=== PATIENT | male | born 1970 | race Caucasian/White ===

== ENCOUNTER 2016-04-17 10:48 | Emergency (ER) | payer MEDICAID ==
[2016-04-17 11:37] VITALS: TEMP 97.3
--- NOTE | 2016-04-17 12:23 | EDPHY ---
H & P Smoking Status: Unknown if ever smoked Time Seen by Provider: 04/17/16 10:50 HPI/ROS: CHIEF COMPLAINT: Dizzy HISTORY OF PRESENT ILLNESS: 46-year-old male presents to the emergency department by ambulance feeling extremely dizzy. Patient has a history of methamphetamine abuse. His last use was at 7 o'clock this morning. States that he felt extremely dizzy. He is concerned that he is having another heart attack. He had a myocardial infarction 2 years ago and has a stent. He denies shortness of breath. He denies pain in his chest. He denies any reported trauma. No head injury. No visual changes. Denies any other substance abuse. He has used cocaine in the past. REVIEW OF SYSTEMS: Constitutional: No fever, no chills. Eyes: No double or blurry vision. ENT: No sore throat. Respiratory: No cough, no shortness of breath. Cardiac: No chest pain. Gastrointestinal: No abdominal pain, vomiting or diarrhea. Genitourinary: No dysuria. Musculoskeletal: No neck or back pain. Skin: No rashes. Neurological: No headache. (Payton Esquivel) Past Medical/Surgical History: Substance abuse, myocardial infarction 2 years ago with stent placement (Payton Esquivel) Social History: Homeless from [place] (Payton Esquivel M) Physical Exam: General Appearance: Alert, no distress. Anxious, agitated Eyes: Pupils equal and round. Extraocular motions are all intact. No nystagmus. ENT: Mouth: Mucous membranes moist. Respiratory: No wheezing, rhonchi, or rales, lungs are clear to auscultation. Cardiovascular: Regular rate and rhythm. Gastrointestinal: Abdomen is soft and nontender, no masses, no rebound or guarding, bowel sounds normal. Neurological: Alert and oriented x 3, cranial nerves II through XII grossly intact Skin: Warm and dry, no rashes. Musculoskeletal: Nontender to palpate along the cervical, thoracic or lumbar spine. Neck is supple. Extremities: Full range of motion and no peripheral edema. Psychiatric: Agitated (Payton Esquivel M) Constitutional: Initial Vital Signs Temperature (C) 36.3 C 04/17/16 11:32 Heart Rate 77 04/17/16 11:32 Respiratory Rate 20 04/17/16 11:32 Blood Pressure 162/101 H 04/17/16 11:32 O2 Sat (%) 94 04/17/16 11:32 O2 Delivery Mode Room Air Medical Decision Making - Diagnostics EKG Interpretation: EKG was reviewed by Dr. Annette Foley and revealed normal sinus rhythm. See interpretation in trace master. (Payton Esquivel) ED Course/Re-evaluation: 46-year-old male presents to the emergency department feeling dizzy after using methamphetamines. His EKG is unremarkable. Troponin is negative. The patient was observed for several hours in the emergency department. He was asking for food. He was given a sandwich and some apple juice and was feeling much better. He was no longer feeling dizzy. He never developed any chest pain or difficulty breathing. He ambulated on his own and will be discharged to the [facility]. (Payton Esquivel) Differential Diagnosis: Including but not limited to myocardial infarction, substance abuse, electrolyte abnormality, positional vertigo, dehydration (Payton Esquivel) Other Provider: The patient was evaluated and managed by the Physician Platform Loader/ Nurse Practitioner. I discussed the patient's presentation and course with the midlevel provider with them and agree with the evaluation. My co-signature indicates that I have reviewed this chart and I agree with the findings and plan of care as documented. I am the secondary supervising physician. (Annette Foley) - Data Points Laboratory Results: Laboratory Results 04/17/16 12:55 04/17/16 12:55 04/17/16 04/17/16 12:55 12:55 WBC 6.31 10^3/uL 10^3/uL (3.80-9.50) RBC 4.56 10^6/uL 10^6/uL (4.40-6.38) Hgb 12.8 g/dL L g/dL (13.7-17.5) Hct 38.3 % L % (40.0-51.0) MCV 84.0 fL fL (81.5-99.8) MCH 28.1 pg pg (27.9-34.1) MCHC 33.4 g/dL g/dL (32.4-36.7) RDW 13.8 % % (11.5-15.2) Plt Count 293 10^3/uL 10^3/uL (150-400) MPV 9.2 fL fL (8.7-11.7) Neut % (Auto) 64.6 % % (39.3-74.2) Lymph % (Auto) 24.1 % % (15.0-45.0) [place] % (Auto) 8.9 % % (4.5-13.0) Eos % (Auto) 1.7 % % (0.6-7.6) Baso % (Auto) 0.5 % % (0.3-1.7) Nucleat RBC Rel Count 0.0 % % (0.0-0.2) Absolute Neuts (auto) 4.08 10^3/uL 10^3/uL (1.70-6.50) Absolute Lymphs (auto) 1.52 10^3/uL 10^3/uL (1.00-3.00) Absolute Monos (auto) 0.56 10^3/uL 10^3/uL (0.30-0.80) Absolute Eos (auto) 0.11 10^3/uL 10^3/uL (0.03-0.40) Absolute Basos (auto) 0.03 10^3/uL 10^3/uL (0.02-0.10) Absolute Nucleated RBC 0.00 10^3/uL 10^3/uL (0-0.01) Immature Gran % 0.2 % % (0.0-1.1) Immature Gran # 0.01 10^3/uL 10^3/uL (0.00-0.10) Sodium 140 mEq/L mEq/L (134-144) Potassium 3.7 mEq/L mEq/L (3.5-5.2) Chloride 106 mEq/L mEq/L (97-110) Carbon Dioxide 23 mEq/l mEq/l (22-31) Anion Gap 11 mEq/L mEq/L (8-16) BUN 10 mg/dL mg/dL (7-23) Creatinine 0.8 mg/dL mg/dL (0.7-1.3) Estimated GFR > 60 Glucose 91 mg/dL mg/dL (70-100) Calcium 9.5 mg/dL mg/dL (8.5-10.4) Troponin I < 0.012 ng/mL ng/mL (0-0.034) Departure - Departure Disposition: Home, Routine, Self-Care Clinical Impression: Methamphetamine abuse Condition: Good Instructions: Methamphetamine Abuse (ED) Additional Instructions: [facility] because of your methamphetamine abuse. Referrals: [facility] [Outside] - As per Instructions
--- NOTE | 2016-04-17 12:53 | CPEKG ---
Heart Rate: 73 RR Interval: 822 P-R Interval: 160 QRSD Interval: 108 QT Interval: 444 QTC Interval: 490 P Jasper: 59 QRS Jasper: -20 T Wave Jasper: 18 EKG Severity - BORDERLINE ECG - EKG Impression: SINUS RHYTHM EKG Impression: BORDERLINE PROLONGED QT INTERVAL Electronically Signed By: Annette Foley 18-Apr-2016 16:27:28
[2016-04-17 13:09] LABS: % IMMATURE GRANULYOCYTES 0.2 % (0.0-1.1); ABSOLUTE IMMATURE GRANULOCYTES 0.01 10^3/uL (0.00-0.10); ADD DIFF? NO; ADD MORPH? NO; ADD SCAN? NO; ATYPICAL LYMPHOCYTE FLAG 0 (0-99); FRAGMENT RBC FLAG 0 (0-99); HEMATOCRIT 38.3 % (40.0-51.0); HEMOGLOBIN 12.8 g/dL (13.7-17.5); LEFT SHIFT FLG 0 (0-99); LIPEMIA HEMOLYSIS FLAG 80 (0-99); MEAN CELL HEMOGLOBIN 28.1 pg (27.9-34.1); MEAN CELL HEMOGLOBIN CONCENTR. 33.4 g/dL (32.4-36.7); MEAN PLATELET VOLUME 9.2 fL (8.7-11.7); PLATELET CLUMPS FLAG 30 (0-99); PLATELET COUNT 293 10^3/uL (150-400); RED BLOOD CELL COUNT 4.56 10^6/uL (4.40-6.38); RED CELL DISTRIBUTION WIDTH 13.8 % (11.5-15.2)
[2016-04-17 13:27] LABS: ANION GAP 11 mEq/L (8-16); CALCIUM 9.5 mg/dL (8.5-10.4); CARBON DIOXIDE 23 mEq/l (22-31); CHLORIDE 106 mEq/L (97-110); CREATININE 0.8 mg/dL (0.7-1.3); GLOMERULAR FILTRATION RATE > 60; GLUCOSE 91 mg/dL (70-100); POTASSIUM 3.7 mEq/L (3.5-5.2); SODIUM 140 mEq/L (134-144)
[2016-04-17 13:39] LABS: TROPONIN I < 0.012 ng/mL (0-0.034)
[2016-04-17 16:37] VITALS: BP 149/95; PULSE 92; RESP 16; O2SAT 93
== END 2016-04-17 17:05 | disposition home or self-care (01) ==
DX: F15.10 Other stimulant abuse, uncomplicated (principal); I25.2 Old myocardial infarction

== ENCOUNTER 2016-07-27 22:29 | Emergency (ER) | payer MEDICAID ==
[2016-07-27 22:40] VITALS: TEMP 98.4; O2SAT 96
--- NOTE | 2016-07-28 01:27 | EDPHY ---
H & P Stated Complaint: detox, HTN Time Seen by Provider: 07/28/16 01:10 HPI/ROS: HPI The patient presents with concern for methamphetamine withdrawal, last used about 15 hours prior to presentation. He feels as if his blood pressure may be high and does have a history of hypertension. He recently relocated here from [place] and does not have local treating physicians. He denies any palpitations , seizure, trauma. He does not have any chest pain, shortness of breath, abdominal pain, confusion. REVIEW OF SYSTEMS Constitutional: No fever, no chills. Eyes: No discharge. ENT: No sore throat. Cardiovascular: No chest pain, no palpitations. Respiratory: No cough, no shortness of breath. Gastrointestinal: No abdominal pain, no vomiting. Genitourinary: No hematuria. Musculoskeletal: No back pain. Skin: No rashes. Neurological: No headache. PMHx: Hypertension Soc Hx: Homeless, methamphetamine abuse PHYSICAL General Appearance: Alert, no distress Eyes: Pupils equal and round no pallor or injection ENT, Mouth: Mucous membranes moist Respiratory: There are no retractions, lungs are clear to auscultation Cardiovascular: Regular rate and rhythm Gastrointestinal: Abdomen is soft and non-tender, no masses, bowel sounds normal Neurological: A&O, moves all extremities Skin: Warm and dry, no rashes Musculoskeletal: Neck is supple non tender Extremities: symmetrical, full range of motion Psychiatric: Patient is oriented X 3, there is no agitation Source: Patient Exam Limitations: No limitations - Personal History Current Tetanus/Diphtheria Vaccine: Yes Current Tetanus Diphtheria and Acellular Pertussis (TDAP): Yes - Medical/Surgical History Hx Asthma: No Hx Chronic Respiratory Disease: No Hx Diabetes: Yes Hx Cardiac Disease: No Hx Renal Disease: No Hx Cirrhosis: No Hx Alcoholism: No Hx HIV/AIDS: No Other PMH: meth abuse, HTN, ETOH abuse - Social History Smoking Status: Never smoked Constitutional: Initial Vital Signs Temperature (C) 36.9 C 07/27/16 22:37 Heart Rate 108 H 07/27/16 22:37 Respiratory Rate 20 07/27/16 22:37 Blood Pressure 172/110 H 07/27/16 22:37 O2 Sat (%) 96 07/27/16 22:37 O2 Delivery Mode Room Air Allergies/Adverse Reactions: No Known Allergies Allergy (Unverified 07/27/16 22:36) Home Medications: Medication Instructions Recorded NK [No Known Home Meds] 07/27/16 Medical Decision Making Differential Diagnosis: This is a 46-year-old male, with homelessness, methamphetamine abuse, new to the area, who presents looking for a detox program for methamphetamine. He last used about 15 hours ago. He would like to be sober. He initially is complaining of elevated blood pressure, however he is normotensive now here. He does not have any signs of hypertensive emergency. We will provide him with outpatient resources such as the [facility]. Differential diagnosis includes methamphetamine intoxication, methamphetamine withdrawal, alcohol withdrawal. - Data Points Medications Given: Discontinued Medications Chlordiazepoxide HCl (Librium) 10 mg PO EDNOW ONE Stop: 07/28/16 01:37 Last Admin: 07/28/16 01:45 Dose: 10 mg Departure - Departure Disposition: Home, Routine, Self-Care Clinical Impression: Methamphetamine abuse Condition: Good Instructions: Methamphetamine Abuse (ED) Referrals: [facility] [Outside] - As per Instructions
[2016-07-28] MEDS ORDERED: chlordiazePOXIDE 25 MG CAP PO ONE (01:36)
[2016-07-28 01:47] VITALS: BP 130/88; PULSE 78; RESP 16
== END 2016-07-28 01:45 | disposition home or self-care (01) ==
DX: F15.10 Other stimulant abuse, uncomplicated (principal); I10 Essential (primary) hypertension; E11.9 Type 2 diabetes mellitus without complications

== ENCOUNTER 2016-08-07 16:25 | Emergency (ER) | payer MEDICAID, OTHER ==
[2016-08-07 16:43] VITALS: BP 174/104; PULSE 104; RESP 16; TEMP 97.7; O2SAT 95
[2016-08-07] MEDS ORDERED: LORazepam 2 MG/ML INJ IVP ONE (16:55)
[2016-08-07] MEDS ORDERED: NS 1,000 ML IV ONE (16:56)
[2016-08-07] MEDS ORDERED: LORazepam 1 MG TAB ONE (17:24)
[2016-08-07] MEDS ORDERED: LORazepam 1 MG TAB PO ONE (17:26)
[2016-08-07 19:02] LABS: % IMMATURE GRANULYOCYTES 0.3 % (0.0-1.1); ABSOLUTE IMMATURE GRANULOCYTES 0.02 10^3/uL (0.00-0.10); ADD DIFF? NO; ADD MORPH? NO; ADD SCAN? NO; ATYPICAL LYMPHOCYTE FLAG 10 (0-99); FRAGMENT RBC FLAG 0 (0-99); HEMATOCRIT 42.1 % (40.0-51.0); HEMOGLOBIN 13.7 g/dL (13.7-17.5); LEFT SHIFT FLG 0 (0-99); LIPEMIA HEMOLYSIS FLAG 80 (0-99); MEAN CELL HEMOGLOBIN 27.9 pg (27.9-34.1); MEAN CELL HEMOGLOBIN CONCENTR. 32.5 g/dL (32.4-36.7); MEAN CELL VOLUME 85.7 fL (81.5-99.8); MEAN PLATELET VOLUME 8.9 fL (8.7-11.7); PLATELET CLUMPS FLAG 0 (0-99); PLATELET COUNT 298 10^3/uL (150-400); RED BLOOD CELL COUNT 4.91 10^6/uL (4.40-6.38); RED CELL DISTRIBUTION WIDTH 14.8 % (11.5-15.2)
[2016-08-07 19:23] LABS: ANION GAP 13 mEq/L (8-16); CALCIUM 9.8 mg/dL (8.5-10.4); CARBON DIOXIDE 22 mEq/l (22-31); CHLORIDE 104 mEq/L (97-110); CREATININE 1.1 mg/dL (0.7-1.3); ETHANOL SERUM < 10 mg/dL (0-10); GLOMERULAR FILTRATION RATE > 60; GLUCOSE 120 mg/dL (70-100); POTASSIUM 4.2 mEq/L (3.5-5.2); SODIUM 139 mEq/L (134-144)
--- NOTE | 2016-08-07 20:38 | EDPHY ---
H & P Time Seen by Provider: 08/07/16 16:28 HPI/ROS: CHIEF COMPLAINT: Anxiety, paranoia HISTORY OF PRESENT ILLNESS: This is a 46-year-old male presents to the emergency department via EMS. Patient himself is unable to clearly state why he is here, other than that he is anxious and he was told by the [facility] to come to the emergency department. Patient denies a history of alcohol use. He seems quite paranoid and is difficult to obtain a clear history. The only thing he repeatedly tells me is that he is anxious and he is wondering why nobody is listening to him. Patient denies any pain. He denies a headache, shortness of breath, abdominal pain, nausea, or vomiting. He denies any diarrhea. He denies a history of mental health disease. He denies a history of alcohol abuse. Patient does report that he has used methamphetamines. REVIEW OF SYSTEMS: Aside from elements discussed in the HPI, a comprehensive 10-point review of systems was reviewed and is negative. PAST MEDICAL HISTORY: Patient denies. No reported of mental health disorders. SOCIAL HISTORY: Smoker. Smoking Status: Never smoked Physical Exam: VITAL SIGNS Reviewed by me. GENERAL: Well-developed, well-nourished, no obvious respiratory distress. Seems very anxious and paranoid. HEENT: Atraumatic. Eyes: No icterus, no injection. Mouth: dry mucous membranes. No erythema or lesions. Neck: supple with no adenopathy. No meningismus, neg kernig, neg brudzinski. LUNGS: Clear to auscultation bilaterally, no wheezes, rhonchi or rales. CARDIAC: Regular rate and rhythm, no rubs, murmurs or gallops. ABDOMEN: Soft, nontender, nondistended, bowel sounds normal. BACK: No CVA tenderness. EXTREMITIES: No trauma. No edema. Range of motion is normal throughout. NEURO: Alert and oriented, grossly nonfocal. SKIN: Warm and dry, no rash. PSYCHIATRIC: Paranoid, agitated. Constitutional: Initial Vital Signs Temperature (C) 36.5 C 08/07/16 16:39 Heart Rate 104 H 08/07/16 16:39 Respiratory Rate 16 08/07/16 16:39 Blood Pressure 174/104 H 08/07/16 16:39 O2 Sat (%) 95 08/07/16 16:39 O2 Delivery Mode Room Air Allergies/Adverse Reactions: No Known Allergies Allergy (Unverified 07/27/16 22:36) Home Medications: Medication Instructions Recorded NK [No Known Home Meds] 07/27/16 Medical Decision Making ED Course/Re-evaluation: 46 year old presenting via EMS for anxiety. After arrival to ED, patient expresses significant paranoid ideation. Very anxious. Reports methamphetamine use. Treated with ativan 1 mg po. Patient refused IV placement or meds. Labs largely unremarkable; urine tox without evidence of methamphetamines. Eval by Beth from [facility]. Patient known to EPS and to [facility]. History of methamphetamine use. EPS will not evaluate till 12 hours post admission to ensure that ampetamines have cleared. Patient not expressing SI, HI, or grave disability; does wish to be taken to the [facility] for meth detox. [facility] aware of patient as well and agree to take him for detox. Differential Diagnosis: Diff dx considered included electrolyte abnormalities, hyperthyroid, drug or alcohol use, drug or alcohol withdrawl, mental health diagnosis, bipolar, schizophrenia. - Data Points Laboratory Results: Laboratory Results 08/07/16 18:50 08/07/16 18:50 Medications Given: Discontinued Medications Sodium Chloride (Ns) 1,000 mls @ 0 mls/hr IV ONCE ONE; Wide Open PRN Reason: Protocol Stop: 08/07/16 16:57 Last Admin: 08/07/16 19:02 Dose: Not Given Lorazepam (Ativan Injection) 1 mg IVP EDNOW ONE Stop: 08/07/16 16:56 Last Admin: 08/07/16 19:01 Dose: Not Given Lorazepam (Ativan) 1 mg PO EDNOW ONE Stop: 08/07/16 17:27 Last Admin: 08/07/16 17:32 Dose: 1 mg Departure - Departure Disposition: Home, Routine, Self-Care Clinical Impression: Methamphetamine use, Paranoid behavior Condition: Good Instructions: Methamphetamine Abuse (ED) Additional Instructions: You have been discharged to the [facility]. We strongly encourage you to stop using methamphetamines. Referrals: Patient,NotPresent [Primary Care Provider] - As per Instructions
== END 2016-08-07 21:13 | disposition home or self-care (01) ==
LOC: EDUNIT#
DX: F15.90 Other stimulant use, unspecified, uncomplicated (principal); F60.0 Paranoid personality disorder; F17.200 Nicotine dependence, unspecified, uncomplicated
CPT/HCPCS: 80305; G0480

== ENCOUNTER 2017-06-18 06:15 | Emergency (ER) | payer MEDICAID ==
[2017-06-18 06:29] VITALS: BP 188/103
[2017-06-18] MEDS ORDERED: LISINOPRIL 20 MG TAB PO ONE (06:33)
[2017-06-18] MEDS ORDERED: CHLORDIAZEPOXIDE 25MG PREPK#6 BTL TAKEHOME ONE (06:33)
--- NOTE | 2017-06-18 06:34 | EDPHY ---
H & P Stated Complaint: requesting detox from meth-awake for 7 days Time Seen by Provider: 06/18/17 06:31 HPI/ROS: HPI The patient presents brought in by ambulance requesting detox from methamphetamine. He last used earlier in the day today. As he has a longstanding history of methamphetamine abuse. He is feeling jittery and generally unwell. He denies any chest pain or shortness of breath.. He does admit to drinking 1 beer in the last day. REVIEW OF SYSTEMS Constitutional: No fever, no chills. Eyes: No discharge. ENT: No sore throat. Cardiovascular: No chest pain, no palpitations. Respiratory: No cough, no shortness of breath. Gastrointestinal: No abdominal pain, no vomiting. Genitourinary: No hematuria. Musculoskeletal: No back pain. Skin: No rashes. Neurological: No headache. PMHx: Hypertension Soc Hx: History of methamphetamine abuse, history of alcohol abuse PHYSICAL General Appearance: Alert, somewhat anxious Eyes: Pupils equal and round no pallor or injection ENT, Mouth: Mucous membranes moist Respiratory: There are no retractions, lungs are clear to auscultation Cardiovascular: Regular rate and rhythm Gastrointestinal: Abdomen is soft and non-tender, no masses, bowel sounds normal Neurological: A&O, moves all extremities Skin: Warm and dry, no rashes Musculoskeletal: Neck is supple non tender Extremities: symmetrical, full range of motion Psychiatric: Patient is oriented X 3, there is no agitation Source: Patient Exam Limitations: No limitations - Personal History Current Tetanus Diphtheria and Acellular Pertussis (TDAP): No - Medical/Surgical History Hx Asthma: No Hx Chronic Respiratory Disease: No Hx Diabetes: No Hx Cardiac Disease: Yes Hx Renal Disease: No Hx Cirrhosis: No Hx Alcoholism: No Hx HIV/AIDS: No Hx Splenectomy or Spleen Trauma: No Other PMH: meth abuse, HTN, ETOH abuse, cardiac - Social History Smoking Status: Never smoked Constitutional: Initial Vital Signs Temperature (C) 36.7 C 06/18/17 06:25 Heart Rate 81 06/18/17 06:25 Respiratory Rate 16 06/18/17 06:25 Blood Pressure 188/103 H 06/18/17 06:25 O2 Sat (%) 96 06/18/17 06:25 O2 Delivery Mode Room Air Allergies/Adverse Reactions: No Known Allergies Allergy (Unverified 06/18/17 06:25) Home Medications: Medication Instructions Recorded Lexapro 06/18/17 Lisinopril 06/18/17 Medical Decision Making Differential Diagnosis: This is a 47-year-old homeless male with history of methamphetamine abuse, alcohol abuse who presents after a meth binge using over the last 7 days, now asking for detox. He does have restlessness currently and feeling that bugs are crawling all over him. On arrival, he is hypertensive with a normal heart rate. He does have a history of hypertension and used to take lisinopril. I will give him a dose of this here. He is willing to go to the [facility] and thus I will send him from the emergency department. - Data Points Medications Given: Discontinued Medications Lisinopril (Zestril) 20 mg PO EDNOW ONE Stop: 06/18/17 06:34 Last Admin: 06/18/17 06:38 Dose: 20 mg Departure - Departure Disposition: Home, Routine, Self-Care Clinical Impression: Methamphetamine abuse, Alcohol abuse, Homeless Condition: Good Instructions: Methamphetamine Abuse (ED) Additional Instructions: Please return to the emergency department if you are worse in any way. Referrals: [facility] [Outside] - As per Instructions
== END 2017-06-18 07:01 | disposition home or self-care (01) ==
LOC: EDUNIT#
DX: F15.10 Other stimulant abuse, uncomplicated (principal); F10.129 Alcohol abuse with intoxication, unspecified; I10 Essential (primary) hypertension; Z59.0 Homelessness